=== PATIENT | female | born 1955 | race Caucasian/White ===

== ENCOUNTER 2017-11-24 15:47 | Inpatient (IN) | payer MEDICAID ==
[~2017-11-24] VITALS: Ht 167.6 cm; Wt 81.4 kg
[2017-11-24] MEDS ORDERED: LEVO75TA5 PO (15:55)
[2017-11-24] MEDS ORDERED: ALPR2TAB2 PO (15:55)
[2017-11-24] MEDS ORDERED: DICY10CA3 PO (15:55)
[2017-11-24] MEDS ORDERED: FENO130C6 PO (15:55)
[2017-11-24] MEDS ORDERED: PROM12.55 PO (15:55)
[2017-11-24] MEDS ORDERED: HYDR-3237 PO (15:55)
[2017-11-24] MEDS ORDERED: ONDANSETRON 2MG/ML, 2ML ONE (16:53)
[2017-11-24] MEDS ORDERED: NITROGLYCERIN SINGLE TAB 0.4 MG SL ONE (16:53)
[2017-11-24] MEDS: NITROGLYCERIN SINGLE TAB 0.4 MG SL PRN ×2 (16:54→18:01)
[2017-11-24] MEDS ORDERED: MAALOX/HYOSCYAMINE/LIDOCAINE 45 ML BTL PO ONE (17:00)
[2017-11-24] MEDS ORDERED: ONDANSETRON 2MG/ML, 2ML IVPush ONE (17:00)
[2017-11-24 17:11] LABS: HEMATOCRIT 40.3 % (34.6-47.8); HEMOGLOBIN 13.3 g/dL (11.7-16.4); WHITE BLOOD COUNT 10.3 x10^3/uL (3.4-10)
[2017-11-24 17:14] LABS: ASPARTATE AMINO TRANSFERASE 119 U/L (15-37); BLOOD UREA NITROGEN 22 mg/dL (7-18)
[2017-11-24 17:19] LABS: IS PT STATUS REG ER OR PRE ER? YES
[2017-11-24 18:45] VITALS: BP 109/65
[2017-11-24 19:23] VITALS: BP 121/67
[2017-11-24] MEDS ORDERED: ACETAMINOPHEN 325 MG TABLET PO PRN (19:30)
[2017-11-24] MEDS ORDERED: HEPARIN 5,000 UNITS/ML, 1ML SQ SCH (19:30)
[2017-11-24] MEDS ORDERED: BISACODYL 10 MG SUPP PR PRN (19:30)
[2017-11-24] MEDS ORDERED: POLYETHYLENE GLYCOL 17 GM PACKET PO PRN (19:30)
[2017-11-24] MEDS: HYDROmorphone 2 MG/ML, 1ML IVPush PRN ×2 (20:09→22:07)
[2017-11-24] MEDS: ONDANSETRON 2MG/ML, 2ML IVPush PRN (20:31)
[2017-11-24] MEDS: NITROGLYCERIN 0.4 MG BOTTLE (25 TABS) SL PRN ×3 (20:44→20:55)
[2017-11-24 20:49] VITALS: BP 163/87
[2017-11-24 20:54] VITALS: BP 120/75
[2017-11-24 20:59] VITALS: BP 118/71
[2017-11-24] MEDS ORDERED: NITROGLYCERIN 0.4 MG BOTTLE (25 TABS) SL PRN (21:00)
[2017-11-24] MEDS ORDERED: NITROGLYCERIN 0.4 MG/SPRAY SL PRN (21:00)
[2017-11-24] MEDS: ALPRazolam 1MG TABLET PO SCH (21:00)
[2017-11-24] MEDS: SODIUM CHLORIDE FLUSH 10ML SYR IVF SCH (22:29)
[2017-11-25 00:04] LABS: IS PT STATUS REG ER OR PRE ER? NO
[2017-11-25 01:21] VITALS: BP 123/76
[2017-11-25] MEDS: HYDROmorphone 2 MG/ML, 1ML IVPush PRN ×2 (03:37→12:07)
[2017-11-25] MEDS: ONDANSETRON 2MG/ML, 2ML IVPush PRN (04:19)
[2017-11-25] MEDS: HEPARIN 5,000 UNITS/ML, 1ML SQ SCH ×2 (06:00→14:30)
[2017-11-25] MEDS ORDERED: ASPIRIN 81 MG TABLET EC PO SCH (06:00)
[2017-11-25 06:15] LABS: HEMATOCRIT 39.4 % (34.6-47.8); HEMOGLOBIN 13.2 g/dL (11.7-16.4); WHITE BLOOD COUNT 6.8 x10^3/uL (3.4-10)
[2017-11-25 06:34] LABS: ASPARTATE AMINO TRANSFERASE 125 U/L (15-37); BLOOD UREA NITROGEN 18 mg/dL (7-18)
[2017-11-25 06:38] LABS: IS PT STATUS REG ER OR PRE ER? NO
[2017-11-25 08:00] VITALS: BP 160/90
[2017-11-25] MEDS ORDERED: REGADENOSON 0.4 MG/5 ML SYRINGE ONE (08:56)
[2017-11-25] MEDS ORDERED: DICYCLOMINE 10 MG CAPSULE PO SCH (09:00)
[2017-11-25] MEDS ORDERED: SENNA/DOCUSATE TABLET PO SCH (09:00)
[2017-11-25] MEDS: SODIUM CHLORIDE FLUSH 10ML SYR IVF SCH (09:00)
[2017-11-25] MEDS: ALPRazolam 1MG TABLET PO SCH (09:00)
[2017-11-25] MEDS ORDERED: FENOFIBRATE 145 MG TABLET PO SCH (09:00)
[2017-11-25] MEDS ORDERED: LEVOTHYROXINE 75 MCG TABLET PO SCH (09:00)
[2017-11-25] MEDS ORDERED: AMINOPHYLLINE 25 MG/ML, 10ML ONE (09:44)
[2017-11-25] MEDS ORDERED: ALPRazolam 1MG TABLET PO PRN (12:30)
[2017-11-25] MEDS ORDERED: KETOROLAC 30 MG/1 ML IVPush ONE (12:30)
[2017-11-25 14:24] VITALS: BP 135/75
[2017-11-25] MEDS ORDERED: FLU VACC QS2017-18 (36MOS+) UP/PF 0.5 ML IM-VACC ONE (15:00)
== END 2017-11-25 18:10 | disposition home or self-care (01) | DRG 303 ==
LOC: ED 17:59 → EDIP 18:45 → 5SO 18:53
PROVIDERS: ADMIT Internal Medicine; ATTEND Internal Medicine
DX: I25.9 Chronic ischemic heart disease, unspecified (principal); F11.20 Opioid dependence, uncomplicated; E03.9 Hypothyroidism, unspecified; E78.1 Pure hyperglyceridemia; F41.1 Generalized anxiety disorder; M19.90 Unspecified osteoarthritis, unspecified site; R00.1 Bradycardia, unspecified; R07.2 Precordial pain; Z66 Do not resuscitate; Z82.3 Family history of stroke; Z83.3 Family history of diabetes mellitus; Z90.710 Acquired absence of both cervix and uterus; Z88.5 Allergy status to narcotic agent; Z90.49 Acquired absence of other specified parts of digestive tract
CPT/HCPCS: 36415; 71010; 78452; 80053; 80061; 80074; 83690; 84439; 84443; 84484; 85025; 90686; 93005; 93017; 96374; J1170; J1644; J1885; J2405; J2785; A9502; C9898; J0280